=== PATIENT | female | born 1985 | race Two or more races ===

== ENCOUNTER 2017-05-29 01:27 | Emergency (ER) | payer MEDICAID, OTHER ==
[~2017-05-29] VITALS: Ht 160 cm; Wt 59.1 kg
[~2017-05-29 01:27] MED LIST: ADDE10CA3 PO; AMBI10TA PO; KLON0.5T PO; SERO200T PO
[2017-05-29] MEDS ORDERED: AUGM500T34 PO (03:09)
[2017-05-29] MEDS ORDERED: NORCO 5/325MG TABLET (BULK FOR ED) PO ONE (03:15)
[2017-05-29] MEDS ORDERED: AUGMENTIN 875 MG TAB PO ONE (03:15)
[2017-05-29 03:22] VITALS: BP 113/75
== END 2017-05-29 03:26 | disposition home or self-care (01) ==
LOC: M ED 01:27
DX: H66.92 Otitis media, unspecified, left ear (principal); F41.9 Anxiety disorder, unspecified; F17.200 Nicotine dependence, unspecified, uncomplicated; Z79.899 Other long term (current) drug therapy